=== PATIENT | female | born 1955 | race Caucasian/White ===

== ENCOUNTER 2023-06-12 08:25 | Day surgery (SDC) | payer MEDICARE, OTHER ==
[~2023-06-12 08:25] MED LIST: Lactated Ringers 1,000 ML IV SCH
[2023-06-12] MEDS ORDERED: Propofol 200 MG/20 ML SDV ONE ×2 (10:09→10:39)
[2023-06-12] MEDS ORDERED: fentaNYL 100 MCG/2 ML SDV ONE (10:09)
== END 2023-06-12 12:23 | disposition home or self-care (01) ==
LOC: VM.SDS 08:25
PROVIDERS: ATTEND Family Medicine
DX: Z12.11 Encounter for screening for malignant neoplasm of colon (principal); K64.9 Unspecified hemorrhoids; C50.412 Malignant neoplasm of upper-outer quadrant of left female breast; E78.00 Pure hypercholesterolemia, unspecified; E66.9 Obesity, unspecified; Z68.32 Body mass index [BMI] 32.0-32.9, adult; Z86.16 Personal history of COVID-19; Z79.82 Long term (current) use of aspirin; Z79.899 Other long term (current) drug therapy; Z88.0 Allergy status to penicillin; Z88.2 Allergy status to sulfonamides
CPT/HCPCS: G0121; J2704; J3010; J7120